=== PATIENT | male | born 2000 | race African-American/Black ===

== ENCOUNTER 2021-04-04 15:45 | Emergency (ER) | payer OTHER ==
[~2021-04-04] VITALS: Ht 195.6 cm; Wt 96.0 kg
[2021-04-04 15:53] VITALS: BP 111/75
== END 2021-04-04 18:33 | disposition home or self-care (01) ==
LOC: ER 15:45
DX: M25.512 Pain in left shoulder (principal); M54.2 Cervicalgia; M54.59 Other low back pain; M25.551 Pain in right hip; G89.11 Acute pain due to trauma; V49.49XA Driver injured in collision with other motor vehicles in traffic accident, initial encounter; Y93.89 Activity, other specified; Y92.488 Other paved roadways as the place of occurrence of the external cause
CPT/HCPCS: 73030; 99283